=== PATIENT | male | born 1960 | race Caucasian/White ===

== ENCOUNTER 2018-06-03 17:13 | Emergency (ER) | payer OTHER ==
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
[2018-06-03] MEDS ORDERED: Diphtheria,Pertussis(Acell),Tetanus Vaccine 0.5 ML Syringe IM ONE (17:56)
--- NOTE | 2018-06-03 18:41 | CR ---
INDICATION: Left shoulder pain. TECHNIQUE: Three views. FINDINGS : anatomic glenohumeral alignment. Apparent cystic lucent focus with thin sclerotic margins and some internal curvilinear high attenuation at the inferior glenoid has a diameter of approximately 2.2 cm. It appears centered anteriorly on the axillary view and scapular Y-view. No definitive osteoarthritis. Maintained acromiohumeral distance is lower normal. Mild degenerative arthrosis acromioclavicular joint. IMPRESSION: Nonspecific but benign appearing cystic lucency in the inferior anterior glenoid could be subchondral cyst or intraosseous ganglion. Chondroid neoplasm in the differential but would be unusual at this position. Consider MRI for further characterization. Dictated by Ron Don MD @ Jun 03 2018 6:35PM Signed by Dr. Ron Don @ Jun 03 2018 6:40PM
--- NOTE | 2018-06-03 18:43 | CR ---
INDICATION: Chest pain and shortness of breath TECHNIQUE: Chest 1 view COMPARISON: None FINDINGS: Cardiovascular and mediastinum: Heart size and vasculature are normal in caliber and appearance. Lungs and pleural spaces: Lungs are clear. No sign of infiltrate or mass. No sign of pleural effusion. No pneumothorax. Bones and soft tissues: No significant findings. IMPRESSION: No acute or significant findings. Dictated by Hero Moran MD @ Jun 03 2018 6:40PM Signed by Dr. Hero Moran @ Jun 03 2018 6:41PM
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
== END 2018-06-03 19:02 | disposition home or self-care (01) ==
LOC: MW.ED 17:13
DX: S00.83XA Contusion of other part of head, initial encounter (principal); M25.512 Pain in left shoulder; M54.2 Cervicalgia; V59.40XA Driver of pick-up truck or van injured in collision with unspecified motor vehicles in traffic accident, initial encounter
CPT/HCPCS: 36415; 70450; 70450-26; 71045; 71045-26; 72125; 72125-26; 73030-26-LT; 73030-LT; 81001; 85025; 90471; 90715; 99284; 99284-25